=== PATIENT | male | born 1990 | race Caucasian/White ===

== ENCOUNTER 2016-06-20 13:44 | Emergency (ER) | payer SELFPAY | END 2016-06-20 15:28 | disposition left against medical advice (07) | LOC: ER 13:44 | DX: S51.012A Laceration without foreign body of left elbow, initial encounter (principal); Z53.21 Procedure and treatment not carried out due to patient leaving prior to being seen by health care provider; X58.XXXA Exposure to other specified factors, initial encounter; Y93.9 Activity, unspecified; Y92.89 Other specified places as the place of occurrence of the external cause; Y99.8 Other external cause status ==